=== PATIENT | female | born 1975 | race Native Hawaiian/Other Pacific Islander ===

== ENCOUNTER 2017-01-06 13:58 | Emergency (ER) | payer OTHER ==
[~2017-01-06] VITALS: Ht 172.7 cm; Wt 72.6 kg
[2017-01-06] MEDS ORDERED: CLON1TAB18 PO (14:06)
[2017-01-06] MEDS ORDERED: GABA300C2 PO (14:06)
[2017-01-06] MEDS ORDERED: PHENTERMINE37.5 MG OR (14:07)
[2017-01-06] MEDS ORDERED: SMZ-TMP DS1 TAB OR (14:08)
[2017-01-06 14:39] LABS: PLATELET COUNT 223 K/uL (152-353)
[2017-01-06 15:07] LABS: POTASSIUM 3.1 mmol/L (3.6-5.2)
[2017-01-06 15:40] VITALS: BP 140/80; TEMP 97.6
== END 2017-01-06 15:40 | disposition home or self-care (01) ==
LOC: ED 13:58
DX: L98.8 Other specified disorders of the skin and subcutaneous tissue (principal); F19.10 Other psychoactive substance abuse, uncomplicated
CPT/HCPCS: 36415; 80053; 80307; 81000; 85027; 99283; G0479

== ENCOUNTER 2017-06-05 20:33 | Emergency (ER) | payer OTHER ==
[~2017-06-05] VITALS: Ht 172.7 cm; Wt 86.2 kg
[2017-06-05 20:29] VITALS: TEMP 98.7
[~2017-06-05 20:33] MED LIST: CLON1TAB18 PO; GABA300C2 PO; PHENTERMINE37.5 MG OR; SMZ-TMP DS1 TAB OR
[2017-06-05 21:31] VITALS: BP 159/82
== END 2017-06-05 21:31 | disposition home or self-care (01) ==
LOC: ED 20:33
PROC: 0HQGXZZ Repair Left Hand Skin, External Approach (ICD-10-PCS; principal; 2017-06-05)
DX: S61.412A Laceration without foreign body of left hand, initial encounter (principal); W29.8XXA Contact with other powered hand tools and household machinery, initial encounter; Y92.098 Other place in other non-institutional residence as the place of occurrence of the external cause
CPT/HCPCS: 90471; 90715; 96374; 96375; 99283; J0696; J1885

== ENCOUNTER 2018-08-28 11:13 | Outpatient (CLI) | payer OTHER | END 2018-08-28 11:16 | disposition short-term general hospital (02) | LOC: AMB 11:13 | DX: T50.902A Poisoning by unspecified drugs, medicaments and biological substances, intentional self-harm, initial encounter (principal); Y92.89 Other specified places as the place of occurrence of the external cause | CPT/HCPCS: A0425; A0427 ==

== ENCOUNTER 2018-08-28 11:23 | Emergency (ER) | payer OTHER ==
[~2018-08-28] VITALS: Ht 170.2 cm; Wt 90.7 kg
[2018-08-28 11:54] LABS: PLATELET COUNT 329 K/uL (152-353)
[2018-08-28 12:30] LABS: POTASSIUM 3.1 mmol/L (3.6-5.2)
[2018-08-28 14:14] VITALS: BP 131/72; TEMP 97.8
== END 2018-08-28 14:15 | disposition home or self-care (01) ==
LOC: ED 11:23
DX: T40.2X1A Poisoning by other opioids, accidental (unintentional), initial encounter (principal); R53.83 Other fatigue; Y92.89 Other specified places as the place of occurrence of the external cause
CPT/HCPCS: 80053; 80307; 81000; 85027; 96365; 96374; 96376; 99285; J2310; J7120

== ENCOUNTER 2019-03-10 21:00 | Emergency (ER) | payer OTHER ==
[~2019-03-10] VITALS: Ht 172.7 cm; Wt 90.7 kg
[2019-03-10 23:55] VITALS: BP 138/83; TEMP 98.1
== END 2019-03-11 00:06 | disposition home or self-care (01) ==
LOC: ED 21:00
DX: S92.514A Nondisplaced fracture of proximal phalanx of right lesser toe(s), initial encounter for closed fracture (principal); W22.8XXA Striking against or struck by other objects, initial encounter; Y92.89 Other specified places as the place of occurrence of the external cause
CPT/HCPCS: 96372; 99283; J1885